=== PATIENT | female | born 1990 | race Caucasian/White ===

== ENCOUNTER 2021-10-03 19:49 | Emergency (ER) | payer MEDICAID ==
[~2021-10-03] VITALS: Ht 154.9 cm; Wt 71.7 kg
--- NOTE | 2021-10-03 19:58 | NUR ---
Placed in room 6 . Placed on monitoring specialist, blood pressure machine and pulse oximeter. To gown for exam. Side rails up. Report given to Annia LAWSON.
--- NOTE | 2021-10-03 20:00 | NUR ---
Pt BIB ambulance ALS at this time w/ c/o allergic reaction s/p taking doxycycline. PT states symptoms included SOB, "scratchy throat", and lightheadedness. Pt respirations even and unlabored at this time. Pt denies difficulty swallowing. Normal skin color for ethnicity. No obvious rash to trunk, extremities, or face at this time. Pt states "I have been taking doxycycline for a while for Rosacea and never have been allergic, but I did start taking a new probiotic 2 days ago".
[2021-10-03 20:03] VITALS: BP_SYST 102
--- NOTE | 2021-10-03 20:03 | NUR ---
# 20 gauge angiocath placed to right hand by EMS in the field. Use of asceptic technique. Opsite placed over site. Blood return noted. Flushed with 10 cc of normal saline. No evidence of infiltration noted. Patient tolerated well.
--- NOTE | 2021-10-03 20:18 | NUR ---
ER Dr. DHILLON at bedside examining patient.
[2021-10-03] MEDS ORDERED: methylPREDNISolone SOD SUCC/PF 62.5 MG/ML VIAL IVP ONE (20:30)
[2021-10-03] MEDS ORDERED: DIPHENHYDRAMINE INJ 50 MG/ML VIAL IVP ONE (20:30)
[2021-10-03] MEDS ORDERED: MED4 PO (21:25)
[2021-10-03 21:33] VITALS: BP_SYST 122
--- NOTE | 2021-10-03 21:35 | NUR ---
2129- pt a/o x4, CLEAR SPEECH. RESP EVEN AND UNLABORED. WATER OFFER PO, SWALLOWING WITHOUT DIFFUCULTY OR CHOKING. PT STATES "FEELS BETTER" [facility] AT BEDSIDE
--- NOTE | 2021-10-03 21:42 | NUR ---
2135- PT AMB TO LOBBY WITH [facility] AND ALL PAPERWORK IN HAND
== END 2021-10-03 21:33 | disposition home or self-care (01) ==
LOC: SED 19:49
DX: L71.9 Rosacea, unspecified (principal); T36.4X5A Adverse effect of tetracyclines, initial encounter; R06.02 Shortness of breath; Z88.1 Allergy status to other antibiotic agents; Z79.899 Other long term (current) drug therapy
CPT/HCPCS: 96374; 96375; 99284; J1200; J2930